=== PATIENT | female | born 1965 | race Caucasian/White ===

== ENCOUNTER 2021-12-01 23:58 | Emergency (ER) | payer OTHER ==
[2021-12-02 00:22] LABS: BASOPHIL 0.4 % (0-2); EOSINOPHIL 2.5 % (0-5); HCT 45.4 % (37.0-47.0); HGB 14.5 g/dl (12.5-16.0); LYMPHOCYTE 24.2 % (15-48); MCH 28.4 pg (25.0-31.0); MCHC 31.9 g/dL (32.0-36.0); MONOCYTE 6.2 % (0-12); MPV 10.1 fL (6.0-9.5); NEUTROPHIL 66.5 % (41-80); NRBC 0; PLT 351 K/uL (150-400); RDW 12.9 % (11.5-14.0); WBC 12.2 K/uL (4.0-10.5)
[2021-12-02 00:36] LABS: ALBUMIN 3.3 g/dL (3.4-5.0); BILIRUBIN - TOTAL 0.2 mg/dL (0.2-1.0); BUN/CREAT RATIO (CALC) 13.4 RATIO; CREATININE 1.12 mg/dL (0.51-0.95); GLOBULIN (CALCULATION) 4.3 g/dL; POTASSIUM 3.5 mmol/L (3.5-5.1); TOTAL PROTEIN 7.6 g/dL (6.4-8.2)
[2021-12-02 01:45] LABS: CORONAVIRUS 2019 SARS-COV-2 NEGATIVE (NEGATIVE); INFLUENZA A NAA NEGATIVE (NEGATIVE)
[2021-12-02 02:27] LABS: BILIRUBIN NEGATIVE (NEGATIVE); BLOOD NEGATIVE Ery/uL (NEGATIVE); CLARITY CLEAR (CLEAR); COLOR YELLOW (YELLOW); GLUCOSE (U) NORMAL (NORMAL); LEUKOCYTES NEGATIVE Leu/uL (NEGATIVE); NITRITE NEGATIVE (NEGATIVE); PROTEIN NEGATIVE (NEGATIVE); SPECIFIC GRAVITY <=1.005 (1.001-1.030); UROBILINOGEN 0.2 mg/dL (0.2-1.0)
[2021-12-02] MEDS ORDERED: ONDANSETRON ODT4 MG PO ×2 (02:43→03:43)
== END 2021-12-02 03:50 | disposition home or self-care (01) ==
LOC: FER 23:58
PROVIDERS: Internal Medicine
DX: R07.89 Other chest pain (principal); R42 Dizziness and giddiness; E04.1 Nontoxic single thyroid nodule; E27.8 Other specified disorders of adrenal gland; I10 Essential (primary) hypertension; K21.9 Gastro-esophageal reflux disease without esophagitis; Z20.822 Contact with and (suspected) exposure to COVID-19; Z88.1 Allergy status to other antibiotic agents; Z88.8 Allergy status to other drugs, medicaments and biological substances; Z79.899 Other long term (current) drug therapy
CPT/HCPCS: 36415; 71045; 71250; 80053; 81003; 83690; 84145; 84484; 85025; 93005; J2060; J3475; J7040; U0002